=== PATIENT | male | born 1960 | race Caucasian/White ===

== ENCOUNTER 2018-10-12 14:19 | Emergency (ER) | payer MEDICAID ==
[~2018-10-12] VITALS: Ht 165.1 cm; Wt 66.4 kg
[~2018-10-12 14:19] MED LIST: CEPH-443 PO; GLIP5TAB13 PO; HYDR-842 PO; HYDROCORTISONE 1% TOP; METF100010 PO
[2018-10-12 14:24] VITALS: BP 143/90; PULSE 121; RESP 24; Ht 165.1 cm; Wt 66.4 kg
--- NOTE | 2018-10-12 18:57 | ERD ---
ER Documentation Chief Complaint Chief Complaint FACIAL RAHES ROS All systems reviewed and are negative except as per history of present illness. Medications Home Meds Active Scripts Methylprednisolone* (Medrol* DOSE PACK) 4 Mg/Dose-Pack Tab.ds.pk, 4 MG PO . DIRECTED for dermatitis, #1 PACKET Prov:VIJAY AMAYA DO 10/12/18 Hydroxyzine Hcl* (Atarax*) 25 Mg Tab, 25 MG PO Q6H PRN for ITCHING, #20 TAB Prov:ROSA ZAYAS MD 10/10/18 [Hydrocortisone 1%] No Conflict Check, 1 APPLIC TOP BID for 3 Days, #1 TUB Prov:ROSA ZAYAS MD 10/10/18 Cephalexin* (Keflex*) 500 Mg Capsule, 500 MG PO QID for 7 Days, CAP Prov:ABBI WILCOX MD 10/08/18 Reported Medications Glipizide* (Glipizide*) 5 Mg Tablet, 5 MG PO AC BREAKFAST DINNER, TAB 10/10/18 Metformin Hcl* (Metformin Hcl*) 1,000 Mg Tablet, 1000 MG PO WITH BREAKFAST DINNE, #30 TAB 10/10/18 Discontinued Scripts Triamcinolone Acetonide (Triamcinolone Acetonide) 0.1% - 15 Gm Cream.gm., 1 APPLIC TOP BID for 5 Days, #1 TUB Prov:ABBI WILCOX MD 10/08/18 Allergies Allergies: Coded Allergies: cephalexin (Verified Allergy, Intermediate, RASH, 10/10/18) PMhx/Soc History of Surgery: No Anesthesia Reaction: No Hx Neurological Disorder: No Hx Respiratory Disorders: No Hx Cardiac Disorders: No Hx Psychiatric Problems: No Hx Alcohol Use: No Hx Substance Use: No Hx Tobacco Use: No Smoking Status: Never smoker Physical Exam Vitals Vital Signs Date Temp Pulse Resp B/P (MAP) Pulse Ox O2 O2 Flow FiO2 Time Delivery Rate 10/12/18 97.7 121 24 143/90 100 14:24 (107) Physical Exam Const: No acute distress Head: Atraumatic Eyes: Normal Conjunctiva ENT: Normal External Ears, Nose and Mouth. Neck: Full range of motion. No meningismus. Resp: Clear to auscultation bilaterally Cardio: Regular rate and rhythm, no murmurs Abd: Soft, non tender, non distended. Normal bowel sounds Skin: No petechiae or rashes Back: No midline or flank tenderness Ext: No cyanosis, or edema Neur: Awake and alert Psych: Normal Mood and Affect Results 24 hrs Current Medications Medications Dose Sig/[place] Start Time Status Last (Trade) Ordered Route PRN Stop Time Admin Dose Reason Admin 10 mg ONCE ONCE 10/12/18 DC Dexamethasone IM 19:00 (Decadron) 10/12/18 19:01 VIJAY AMAYA DO Oct 12, 2018 18:57
[2018-10-12] MEDS ORDERED: DEXAMETHASONE 10 MG/ML 1 ML INJ IM ONE (19:00)
[2018-10-12] MEDS ORDERED: MED4DP PO (19:23)
== END 2018-10-12 19:35 | disposition home or self-care (01) ==
LOC: FTE 14:19
DX: R21 Rash and other nonspecific skin eruption (principal)
CPT/HCPCS: 96372; J1100; Z7502

== ENCOUNTER 2019-04-16 09:10 | Emergency (ER) | payer MEDICAID ==
[~2019-04-16] VITALS: Ht 167.6 cm; Wt 65.8 kg
[~2019-04-16 09:10] MED LIST changes: +CYCL10TA7 PO; +IBUP-1542 PO; +MED4DP PO
[2019-04-16 09:14] VITALS: BP 174/95; PULSE 92; RESP 17; Ht 167.6 cm; Wt 65.8 kg
== END 2019-04-16 12:07 | disposition home or self-care (01) ==
LOC: FTE 09:10
DX: S39.92XA Unspecified injury of lower back, initial encounter (principal); S19.9XXA Unspecified injury of neck, initial encounter; V49.40XA Driver injured in collision with unspecified motor vehicles in traffic accident, initial encounter
CPT/HCPCS: 72040; 72100; 96372; J1885; Z7502